=== PATIENT | female | born 1980 | race Caucasian/White ===

== ENCOUNTER → 2016-08-02 | Outpatient (CLI) | payer OTHER ==
[~2016-08-02] MED LIST: CYM30 PO; ETONMIS VAGRING; IBUP600T44 PO; OXYC-57 PO; TRAZ100T29 PO
== END | disposition home or self-care (01) ==
LOC: C.PAPS 09:57
PROVIDERS: ATTEND Obstetrics & Gynecology
DX: Z12.4 Encounter for screening for malignant neoplasm of cervix (principal)

== ENCOUNTER → 2016-08-14 | Outpatient (CLI) | payer OTHER ==
[2016-08-14 15:37] LABS: PROLACTIN 6.42 ng/mL
== END | disposition home or self-care (01) ==
LOC: C.LABBC 11:18
PROVIDERS: ATTEND Obstetrics & Gynecology
DX: N92.6 Irregular menstruation, unspecified (principal)

== ENCOUNTER → 2016-10-11 | Outpatient (CLI) | payer OTHER ==
[2016-10-11 13:41] LABS: CALCULATED INSULIN SENSITIVITY 0.314; GLUCOSE LOG 1.9685; INSULIN FASTING 16.4 mU/L (3-25); INSULIN LOG 1.2148
== END | disposition home or self-care (01) ==
LOC: C.LAB1850 11:25
PROVIDERS: ATTEND Obstetrics & Gynecology
DX: E66.9 Obesity, unspecified (principal)

== ENCOUNTER → 2017-01-16 | Outpatient (CLI) | payer OTHER ==
--- NOTE | 2017-01-16 11:07 | DIAGNOSTIC IMAGING REPORT ---
HYSTEROSALPINGOGRAM HISTORY: Infertility. FLUOROSCOPY TIME: 0.7 minutes. 5 images submitted. TECHNIQUE: The cervix was cannulated by the computer education professor-fulfillment associate and water soluble contrast was instilled into the uterus under fluoroscopic guidance. Multiple spot images were obtained. FINDINGS: The uterine cavity is normal in size, shape, and position. The fallopian tubes are patent and there is free peritoneal spill bilaterally. A few small filling defects within the uterine cavity are consistent with gas bubbles. IMPRESSION: Normal hysterosalpingogram. Electronically signed by: Justen Gómez M.D. 01/16/2017 11:06 AM Dictated Date/Time: 01/16/2017 11:06 AM
--- NOTE | 2017-01-16 11:10 | Progress Note ---
Progress Note Date of Service Jan 16, 2017. Progress Note I met Bianca in the radiology suite where consent for procedure was confirmed. She was then positioned in lithotomy, Graves speculum was placed in the vagina , and the cervix was cleansed with betadine. The anterior lip was grasped with a single tooth tenaculum and the acorn catheter was placed in the external os, then the speculum was removed. Under fluoroscopy, optiray dye was pushed through the uterus and bilateral fallopian tubes. When the imaging had been completed per Dr. Gómez the catheter and grasper were removed without difficulty. The patient was in stable condition in the radiology suite when I departed.
== END | disposition home or self-care (01) ==
LOC: C.RAD 10:12
PROVIDERS: ATTEND Obstetrics & Gynecology
DX: Z31.41 Encounter for fertility testing (principal)

== ENCOUNTER → 2017-03-04 | Outpatient (CLI) | payer OTHER | END | disposition home or self-care (01) | LOC: C.LABBC 14:44 | PROVIDERS: ATTEND Obstetrics & Gynecology | DX: Z32.00 Encounter for pregnancy test, result unknown (principal) ==

== ENCOUNTER → 2017-03-06 | Outpatient (CLI) | payer OTHER | END | disposition home or self-care (01) | LOC: C.LABBC 15:17 | PROVIDERS: ATTEND Obstetrics & Gynecology | DX: Z32.00 Encounter for pregnancy test, result unknown (principal) ==

== ENCOUNTER → 2017-03-10 | Outpatient (CLI) | payer OTHER | END | disposition home or self-care (01) | LOC: C.LAB1850 16:26 | PROVIDERS: ATTEND Obstetrics & Gynecology | DX: O20.0 Threatened abortion (principal); Z3A.00 Weeks of gestation of pregnancy not specified ==

== ENCOUNTER → 2017-03-19 | Outpatient (CLI) | payer OTHER | END | disposition home or self-care (01) | LOC: C.LABBC 15:19 | PROVIDERS: ATTEND Obstetrics & Gynecology | DX: O02.1 Missed abortion (principal) ==

== ENCOUNTER → 2017-09-26 | Outpatient (CLI) | payer OTHER ==
[2017-09-26 17:19] LABS: BASO % 0.3 %; BASO ABS # 0.03 K/uL (0-0.2); EOS % 1.9 %; EOS ABS # 0.21 K/uL (0-0.5); HEMATOCRIT 37.6 % (37-47); HEMOGLOBIN 12.4 g/dL (12.0-16.0); IG# 0.02 K/uL (0.00-0.02); LYMPH % 31.1 %; LYMPH ABS # 3.36 K/uL (1.2-3.4); MEAN CELL VOLUME 86.8 fL (80-100); MEAN CORPUSCULAR HEMOGLOBIN 28.6 pg (25-34); MONO % 6.3 %; MONO ABS # 0.68 K/uL (0.11-0.59); NEUT % 60.2 %; NEUT ABS # 6.52 K/uL (1.4-6.5); PLATELET COUNT 293 K/uL (130-400); RED CELL DISTRIBUTION WIDTH CV 14.4 % (11.5-14.5); RED CELL DISTRIBUTION WIDTH SD 46.1 fL (36.4-46.3); WHITE BLOOD COUNT 10.82 K/uL (4.8-10.8)
[2017-09-26 17:21] LABS: ALBUMIN 3.6 gm/dl (3.4-5.0); ALT/SGPT 17 U/L (12-78); AST/SGOT 18 U/L (15-37); BLOOD UREA NITROGEN 15 mg/dl (7-18); CALCIUM 8.9 mg/dl (8.5-10.1); CARBON DIOXIDE 26 mmol/L (21-32); CREATININE 0.77 mg/dl (0.60-1.20); GLUCOSE 87 mg/dl (70-99); SODIUM 138 mmol/L (136-145)
[2017-09-26 17:24] LABS: ALKALINE PHOSPHATASE 82 U/L (45-117); TOTAL PROTEIN 7.4 gm/dl (6.4-8.2)
[2017-09-26 17:27] LABS: PROLACTIN 9.18 ng/mL
[2017-09-26 18:06] LABS: HEP C IGG 13 YRS+OLDER_RFLX NEG (NEG)
== END | disposition home or self-care (01) ==
LOC: C.LABBC 14:24
PROVIDERS: ATTEND Obstetrics & Gynecology Reproductive Endocrinology
DX: Z31.41 Encounter for fertility testing (principal)

== ENCOUNTER → 2017-09-30 | Outpatient (CLI) | payer OTHER | END | disposition home or self-care (01) | LOC: C.LABBC 14:25 | PROVIDERS: ATTEND Obstetrics & Gynecology Reproductive Endocrinology | DX: Z31.41 Encounter for fertility testing (principal) ==

== ENCOUNTER → 2018-01-05 | Outpatient (CLI) | payer OTHER ==
[2018-01-05 09:31] LABS: FOLLICLE STIMULAT HORMONE 8.38 IU/L; LUTEINIZING HORMONE 8.54 IU/L
== END | disposition home or self-care (01) ==
LOC: C.LAB1850 08:23
PROVIDERS: ATTEND Obstetrics & Gynecology Reproductive Endocrinology
DX: E28.9 Ovarian dysfunction, unspecified (principal)

== ENCOUNTER 2018-11-18 07:40 | Inpatient (IN) ==
[2018-11-18] MEDS ORDERED: OXYTOCIN 30 UNITS/500 ML BAG IV PRN ×3 (08:16→21:19)
--- NOTE | 2018-11-18 08:20 | History & Physical Report ---
Date of Service November 18, 2018 Assessment & Plan (1) Post-dates , delivered, current hospitalization: Induction to proceed. Pitocin ordered. Patient not sure about epidural; will hold off AROM for now, to start one thing at a time for her comfort. Present on Admission?: Yes (2) resulting from in vitro fertilization in third trimester: See above Present on Admission?: Yes (3) Obesity affecting in third trimester: See above Present on Admission?: Yes History of Present Illness Primary Care Provider: Marry Turpin MD 38yo at 40+ weeks with IVF . Complicated by obesity, insulin resistance, IVF . Allergies Allergy/AdvReac Type Severity Reaction Status Date / Time Penicillins Allergy Mild Verified 02/21/12 07:27 Home Medications Home Medications Medication Instructions Recorded Confirmed Type Duloxetine Hcl (Cymbalta *) 30 mg PO QAM #0 10/03/09 History Etonogestrel/Ethinyl Estradiol 1 VAGRING MONTHLY #0 10/03/09 History (Nuvaring) Trazodone Hcl (Trazodone) 100 mg PO HS PRN #0 10/03/09 History Ibuprofen (Motrin) 600 mg PO Q6HR PRN #0 10/11/09 History OXYCODONE/ACETAMINOPHEN 5MG/325MG 1 - 2 tabs PO Q4HR PRN #0 10/11/09 History (PERCOCET 5MG/325MG) Physical Exam Genitourinary: Manual OB Exam: + cervical dilation 4 cm, + cervical effacement 80%, + station -2 and + amniotic fluid (intact) OB Exam Monitor Tracing: + external FHT monitor used, + external uterine monitor used and + category I Results & Data Vital Signs (Past 12 Hours) Vital Signs Temp Pulse Resp BP 11/18/18 07:50 104 H 136/82 11/18/18 07:46 37.0 C 20 Monitoring External Monitor Cat 1
[2018-11-18 08:37] LABS: Hematocrit (blood only) 35.5 % (37-47); Hemoglobin 11.6 g/dL (12.0-16.0); Mean Corpuscular Volume 83.9 fL (80-100); Mean Platelet Volume 13.3 fL (7.4-10.4); Platelet Count 200 K/uL (130-400); RDW Coefficient of Variation 14.7 % (11.5-14.5); RDW Standard Deviation 44.9 fL (36.4-46.3); Red Blood Count 4.23 M/uL (4.2-5.4); White Blood Count 11.67 K/uL (4.8-10.8)
[2018-11-18 08:38] LABS: Mean Corpuscular Hgb Conc 32.7 g/dL (32-36)
[2018-11-18] MEDS: LACTATED RINGER'S 1,000 ML IV PRN ×2 (09:12→14:49)
[2018-11-18] MEDS ORDERED: ePHEDrine sulfate 50 MG/ML AMP ONE (14:21)
[2018-11-18] MEDS ORDERED: BUPIVACAINE 0.25% 30 ML VIAL ONE (14:21)
[2018-11-18] MEDS ORDERED: fentaNYL citrate 100 MCG/2 ML VIAL ONE (14:22)
[2018-11-18] MEDS ORDERED: fentaNYL 2MCG/ML ROPIV 1.25MG/ML 100 ML BAG EPI ONE (14:22)
--- NOTE | 2018-11-18 14:44 | Anesthesiology Consultation ---
Date of Service November 18, 2018 Assessment & Plan Chart Review Chart Review: Acceptable Risk for Labor Epidural Consults Requested none History Height/Weight Height: 5 ft 3 in Weight: 148.778 kg Allergies Allergy/AdvReac Type Severity Reaction Status Date / Time Penicillins Allergy Intermediate Hives Verified 11/18/18 08:28 Medications Home Medications Medication Instructions Recorded Confirmed Last Taken PNV cmb#95-ferrous fumarate-FA 1 tab PO DAILY 11/18/18 11/18/18 11/17/18 11:00 [] beclomethasone dipropionate [Qvar 2 puff INHALATION BID 11/18/18 11/18/18 11/18/18 07:00 RediHaler] citalopram [Celexa] 40 mg PO DAILY 11/18/18 11/18/18 11/17/18 23:00 Active Medications Generic Name Dose Route Start Last Admin Trade Name Freq PRN Reason Stop Dose Admin Lactated Ringer's 1,000 mls @ 125 mls/hr 11/18/18 08:16 11/18/18 14:25 Lr IV 11/20/18 08:15 999 mls/hr .Q8H PRN Infusion L&D Protocol Protocol Oxytocin 30 units in 500 mls @ 15 mls/hr 11/18/18 08:17 11/18/18 13:15 Pitocin IV 11/20/18 08:16 0.9 units/hr .Q24H PRN 15 mls/hr Labor Induction/Augmentation Titration Protocol 0.9 UNITS/HR Past Medical History Medical History Asthma dx 2 years ago Depression since age 10 Dermoid cyst of left ovary removed in 2009 Infertility Insulin resistance PCOS (polycystic ovarian syndrome) 1 year ago resulting from in-vitro fertilization [place] teeth removed 2004 Past Family History Family History Grandfather (Paternal) Cancer Aunt Cancer Past Surgical History Surgical History H/O lithotripsy twice Hx of tonsillectomy age 21 Social History Smoking Status: Never smoker Hx Alcohol Use: No Hx Substance Use: No Physical Exam Vital Signs Last Vital Signs Temp 37.0 C 11/18/18 07:58 Pulse 76 11/18/18 14:39 Resp 20 11/18/18 12:07 BP 131/86 11/18/18 14:18 Pulse Ox 100 11/18/18 14:39 Testing Laboratory Results 11/18/18 08:21
[2018-11-18] MEDS ORDERED: NALOXONE HCL 1 MG in SODIUM CHLORIDE 0.9% 1000ML 1,000 ML IV PRN (14:45)
[2018-11-18] MEDS ORDERED: fentaNYL 2MCG/ML ROPIV 1.25MG/ML 100 ML BAG EPI PRN (14:45)
[2018-11-18] MEDS ORDERED: NALBUPHINE HCL INJ 10 MG/ML AMP IV PRN (14:45)
[2018-11-18] MEDS ORDERED: NALOXONE HCL 0.4 MG/1 ML VIAL/CARP IV PRN (14:45)
[2018-11-18] MEDS ORDERED: ePHEDrine sulfate 50 MG/ML AMP IV PRN (14:45)
[2018-11-18] MEDS ORDERED: DiphenhydrAMINE HCL 50 MG/ML VIAL IV PRN (14:45)
--- NOTE | 2018-11-18 20:45 | Procedure Note ---
Vaginal Delivery Summary Date of Service November 18, 2018 Vaginal Delivery Summary Vaginal Delivery Summary: Pre-delivery diagnoses: 38-year-old -0-1-0 at 40 weeks 3 days, induction of labor, advanced maternal age, insulin resistance, IVF , obesity, PCOS Post-delivery diagnoses: Same Procedure: Spontaneous vaginal delivery Surgeon: Rae Appiah DO Complications: none Findings: Viable female . Apgars: 8/9. Weight pending, please see nursery records Estimated blood loss: 300 mL Description of delivery: The patient progressed to complete with epidural anesthesia. She then began to push. She spontaneously vaginally delivered a female viable from the cephalic presentation. The head delivered in JILLIAN position. The anterior shoulder delivered, followed by the posterior shoulder, followed by the body. No nuchal cord was noted. The baby was placed on mother's abdomen and a spontaneous cry was heard. Delayed cord clamping was employed, and the cord was doubly clamped and cut after 3 minutes. Cord blood was obtained. The placenta was delivered spontaneously intact with a 3-vessel cord. The uterus and vagina were swept of clots and debris. IV pitocin was given. The uterus became firm. The cervix, vagina, and perineum were inspected and a first-degree perineal laceration was noted and repaired in standard fashion. Additionally, there were bilateral superficial periclitoral lacerations. These were hemostatic, and therefore not repaired. Excellent hemostasis was observed. The mother and baby are recovering in stable and good condition in the room. Sponge, needle, and instrument counts were correct x 2. Rae Appiah [place] [facility] [place]
[2018-11-18] MEDS ORDERED: DIPHTHERIA/TETANUS/PERTUSSIS 0.5 ML SYR/VIAL IM ONE (21:19)
[2018-11-18] MEDS ORDERED: ACETAMINOPHEN 325 MG TAB PO PRN (21:19)
[2018-11-18] MEDS ORDERED: OXYCODONE/ACETAMINOPHEN 5mg/325mg TAB PO PRN (21:19)
[2018-11-18] MEDS ORDERED: BENZOCAINE 20% AER SPR 82.5 GM CAN EXT PRN (21:19)
[2018-11-18] MEDS ORDERED: SUPERCREAM 0.870% 15 GM JAR EXT PRN (21:19)
[2018-11-18] MEDS ORDERED: HYDROCORTISONE ACETATE 25 MG SUPP PR PRN (21:19)
[2018-11-18] MEDS ORDERED: BISACODYL 10 MG SUPP PR PRN (21:19)
[2018-11-18] MEDS: IBUPROFEN 600 MG TAB PO PRN (23:33)
[2018-11-19 06:41] LABS: Hematocrit (blood only) 32.9 % (37-47); Hemoglobin 10.7 g/dL (12.0-16.0); Mean Corpuscular Hgb Conc 32.5 g/dL (32-36); Mean Corpuscular Volume 85.7 fL (80-100); Mean Platelet Volume 14.1 fL (7.4-10.4); Platelet Count 195 K/uL (130-400); RDW Coefficient of Variation 14.9 % (11.5-14.5); RDW Standard Deviation 45.9 fL (36.4-46.3); Red Blood Count 3.84 M/uL (4.2-5.4); White Blood Count 15.26 K/uL (4.8-10.8)
--- NOTE | 2018-11-19 06:43 | Obstetrical Progress Note ---
Date of Service <Jarvis JoeDale Arboleda - Last Filed: 11/19/18 06:44> November 19, 2018 Assessment & Plan <Jarvis Arboleda DO - Last Filed: 11/19/18 06:44> (1) (spontaneous vaginal delivery): -vital signs reviewed and WNL -last Hgb 11.6 -Blood type: A+, GBS-, Rubella Immune -pt doing well clinically -encourage ambulation, monitor and control pain with motrin tylenol, cont regular diet, monitor lochia -cont encourage breast feeding - anticipate d/c tomorrow Subjective <Jarvis JoeDale Arboleda - Last Filed: 11/19/18 06:44> 38 y/o PPD1 found in bed this morning in NAD. Reports no acute overnight events. Pt states that she has no pain other than appropriate soreness. Tolerating PO intake without N/V. Able to ambulate without issue. She is breast feeding without issue. No issues with voiding, no BM yet but passing gas. No other acute concerns or complaints. Review of Systems All systems reviewed & are unremarkable except as noted in HPI & below Physical Exam <Jarvis Arboleda DO - Last Filed: 11/19/18 06:44> Constitutional WD/WN, vitals as above Respiratory normal respiratory effort, lungs clear to auscultation Cardiovascular RRR, no murmur, no edema Gastrointestinal (Abdomen) mild abd tenderness Fundus not palpated, please see attending findings Skin no rashes, warm and dry Psychiatric A+Ox3, euthymic affect Lymphatic no LE swelling, no calf tenderness Results & Data <Jarvis JoeDale Arboleda - Last Filed: 11/19/18 06:44> Vital Signs (Past 12 Hours) Vital Signs Temp Pulse Pulse Resp BP BP Pulse Ox 11/19/18 03:10 36.8 C 92 H 16 124/85 97 11/18/18 21:55 36.7 C 108 H 20 149/89 H 97 11/18/18 21:33 37.2 C 95 H 16 147/76 H 11/18/18 21:18 92 H 147/77 H 11/18/18 21:03 93 H 149/83 H 11/18/18 20:48 100 H 20 148/84 H 11/18/18 20:33 88 137/71 11/18/18 20:18 93 H 137/82 11/18/18 20:15 88 137/79 11/18/18 19:18 96 H 16 180/74 H 11/18/18 19:04 98 H 100 11/18/18 19:03 91 H 16 172/72 H 11/18/18 18:59 91 H 100 11/18/18 18:54 89 99 11/18/18 18:49 82 100 11/18/18 18:48 93 H 185/82 H 11/18/18 18:44 96 H 100 Laboratory Results Laboratory Results - last 24 hr 11/18/18 11/19/18 08:21 06:12 WBC 11.67 H 15.26 H RBC 4.23 3.84 L Hgb 11.6 L 10.7 L Hct 35.5 L 32.9 L MCV 83.9 85.7 MCH 27.4 27.9 MCHC 32.7 32.5 RDW Std Deviation 44.9 45.9 RDW Coeff of Addie 14.7 H 14.9 H Plt Count 200 195 MPV 13.3 H 14.1 H Medications Administered Current Inpatient Medications Acetaminophen (Tylenol) 650 mg PO Q6H PRN PRN Reason: Pain/TALAMANTES/Fever Stop: 12/18/18 21:18 Beclomethasone Dipropionate (Qvar 40 Mcg) 2 puffs INH BID [facility] Stop: 12/18/18 21:18 Benzocaine (Dermoplast Pain Relieving [place]) 1 appln EXT PRN PRN PRN Reason: Perineal Discomfort Stop: 12/18/18 21:18 Bisacodyl (Dulcolax) 5 mg PO 1999 [facility] Stop: 11/19/18 20:01 Bisacodyl (Dulcolax) 10 mg NM DAILY PRN PRN Reason: No BM on 2nd post- day Stop: 12/18/18 21:18 Citalopram Hydrobromide (Celexa) 40 mg PO DAILY [facility] Stop: 12/19/18 08:59 Cocaine HCl (Supercream 0.870%) 1 gm EXT BID PRN PRN Reason: Hemorrhoidal Inflammation Stop: 12/02/18 21:18 Docusate Sodium (Colace) 100 mg PO DAILY@ [facility] Stop: 12/18/18 21:18 Hydrocortisone (Anusol Hc) 25 mg NM BID PRN PRN Reason: Hemorrhoidal Inflammation Stop: 12/18/18 21:18 Oxytocin (Pitocin) 30 units in 500 mls @ 333.333 mls/hr IV .Q1H30M PRN; Protocol PRN Reason: Bleeding Control Stop: 12/18/18 21:18 Ibuprofen (Motrin) 600 mg PO Q4H PRN PRN Reason: Pain/TALAMANTES/Cramping/Fever Stop: 12/18/18 21:18 Last Admin: 11/18/18 23:33 Dose: 600 mg Documented by: Oxycodone/Acetaminophen (Percocet 5mg/325mg) 1 tab PO Q4H PRN PRN Reason: Pain not relieved by... Stop: 12/02/18 21:18 Prenat Multivit/[place]/Iron/Folic Ac ( Vitamin) 1 tab PO DAILY@08 [facility] Stop: 12/19/18 07:59 <Rae Appiah DO - Last Filed: 11/19/18 07:38> Co-Signing Physician Notes Resident Physician Supervision Note: I interviewed and examined the patient. Discussed with Dr. Arboleda and agree with findings and plan as documented in the note. Any exceptions or clarifications are listed here: PPD#1 doing well. Routine care. Documented By: Rae Appiah DO Resident Activity Tracking <Jarvis Arboleda DO - Last Filed: 11/19/18 06:44> Resident Involvement: Resident Care Provided Care Provided: OB Delivery
[2018-11-19] MEDS: CITALOPRAM 40 MG TAB PO SCH (08:04)
[2018-11-19] MEDS: BECLOMETHASONE DIP HFA 40 MCG 8.7G INH INH SCH ×2 (08:04→21:05)
[2018-11-19] MEDS: PRENATAL VITAMIN 1 TAB PO SCH (08:04)
[2018-11-19] MEDS: DOCUSATE SODIUM 100 MG CAP PO SCH ×2 (08:04→21:04)
--- NOTE | 2018-11-19 08:49 | Anesthesia Procedure Note ---
Date of Service November 19, 2018 Anesthesia Post Epidural Note Vital Signs Vital Signs: Temp Pulse Resp BP Pulse Ox 36.6 C 87 20 139/81 98 11/19/18 08:00 11/19/18 08:00 11/19/18 08:00 11/19/18 08:00 11/19/18 08:00 Pain Intensity Bilateral Abdomen: Pain Intensity: 1 Notes Mental Status: alert / awake / arousable and participated in evaluation Nausea / Vomiting: adequately controlled Pain: adequately controlled Airway Patency, RR, SpO2: stable & adequate BP & HR: stable & adequate Hydration State: stable & adequate Neuraxial Anesthesia: was administered and sensory block is resolving Anesthetic Complications: no major complications apparent and Pt Satisfied with anesthetic care Epidural: Removed without complications and With tip intact
[2018-11-19] MEDS: IBUPROFEN 600 MG TAB PO PRN ×2 (10:58→23:30)
[2018-11-19] MEDS ORDERED: BISACODYL 5 MG TABEC PO SCH (20:00)
[2018-11-20 06:31] LABS: Hemoglobin 9.7 g/dL (12.0-16.0)
--- NOTE | 2018-11-20 06:59 | Obstetrical Progress Note ---
Date of Service <Jarvis Johanne Arboleda - Last Filed: 11/20/18 06:59> November 20, 2018 Assessment & Plan <Jarvis JoeDale Arboleda - Last Filed: 11/20/18 06:59> (1) (spontaneous vaginal delivery): -vital signs reviewed and WNL -last Hgb 10.7 -Blood type: A+, GBS-, Rubella Immune -pt doing well clinically -encourage ambulation, monitor and control pain with motrin tylenol, cont regular diet, monitor lochia -cont encourage breast feeding -plan for d/c today Subjective <Jarvis JoeDale Arboleda - Last Filed: 11/20/18 06:59> 38 y/o PPD2 found in bed this morning in NAD. Reports no acute overnight events. Pt states that she has no pain other than appropriate soreness. Tolerating PO intake without N/V. Able to ambulate without issue. She is breast feeding without issue. No issues with voiding, no BM yet but passing gas. No other acute concerns or complaints. Review of Systems All systems reviewed & are unremarkable except as noted in HPI & below Physical Exam <Jarvis Arboleda - Last Filed: 11/20/18 06:59> Constitutional WD/WN, vitals as above Respiratory normal respiratory effort, lungs clear to auscultation Cardiovascular RRR, no murmur, no edema Gastrointestinal (Abdomen) mild abd tenderness fundus not palpated, please see attending findings Skin no rashes, warm and dry Psychiatric A+Ox3, euthymic affect Lymphatic no LE swelling, no calf tenderness Results & Data <Jarvis Johanne Arboleda, - Last Filed: 11/20/18 06:59> Vital Signs (Past 12 Hours) Vital Signs Temp Pulse Resp BP 11/20/18 04:30 80 140/92 11/20/18 00:10 36.6 C 83 18 147/96 H 11/19/18 20:00 161/97 H Laboratory Results Laboratory Results - last 24 hr 11/20/18 06:12 Hgb 9.7 L Hct 30.0 L Medications Administered Current Inpatient Medications Acetaminophen (Tylenol) 650 mg PO Q6H PRN PRN Reason: Pain/TALAMANTES/Fever Stop: 12/18/18 21:18 Beclomethasone Dipropionate (Qvar 40 Mcg) 2 puffs INH BID [facility] Stop: 12/18/18 21:18 Last Admin: 11/19/18 21:05 Dose: 2 puffs Documented by: Benzocaine (Dermoplast Pain Relieving [place]) 1 appln EXT PRN PRN PRN Reason: Perineal Discomfort Stop: 12/18/18 21:18 Bisacodyl (Dulcolax) 10 mg IN DAILY PRN PRN Reason: No BM on 2nd post- day Stop: 12/18/18 21:18 Citalopram Hydrobromide (Celexa) 40 mg PO DAILY [facility] Stop: 12/19/18 08:59 Last Admin: 11/19/18 08:04 Dose: 40 mg Documented by: Cocaine HCl (Supercream 0.870%) 1 gm EXT BID PRN PRN Reason: Hemorrhoidal Inflammation Stop: 12/02/18 21:18 Last Admin: 11/19/18 21:04 Dose: 1 gm Documented by: Docusate Sodium (Colace) 100 mg PO DAILY@08,21 [facility] Stop: 12/18/18 21:18 Last Admin: 11/19/18 21:04 Dose: 100 mg Documented by: Hydrocortisone (Anusol Hc) 25 mg IN BID PRN PRN Reason: Hemorrhoidal Inflammation Stop: 12/18/18 21:18 Oxytocin (Pitocin) 30 units in 500 mls @ 333.333 mls/hr IV .Q1H30M PRN; Protocol PRN Reason: Bleeding Control Stop: 12/18/18 21:18 Ibuprofen (Motrin) 600 mg PO Q4H PRN PRN Reason: Pain/TALAMANTES/Cramping/Fever Stop: 12/18/18 21:18 Last Admin: 11/19/18 23:30 Dose: 600 mg Documented by: Oxycodone/Acetaminophen (Percocet 5mg/325mg) 1 tab PO Q4H PRN PRN Reason: Pain not relieved by... Stop: 12/02/18 21:18 Prenat Multivit/Health Information Administrator/Iron/Folic Ac ( Vitamin) 1 tab PO DAILY@08 [facility] Stop: 12/19/18 07:59 Last Admin: 11/19/18 08:04 Dose: 1 tab Documented by: <Colette Aranda MD, FACOG - Last Filed: 11/20/18 07:56> Co-Signing Physician Notes Resident Physician Supervision Note: I interviewed and examined the patient. Discussed with Dr. Nasima Arboleda and agree with findings and plan as documented in the note. Any exceptions or clarifications are listed here: [None] Documented By: Colette Aranda MD, FACOG Resident Activity Tracking <Jarvis Arboleda, - Last Filed: 11/20/18 06:59> Resident Involvement: Resident Care Provided Care Provided: OB Delivery
[2018-11-20] MEDS: BECLOMETHASONE DIP HFA 40 MCG 8.7G INH INH SCH (08:24)
[2018-11-20] MEDS: CITALOPRAM 40 MG TAB PO SCH (08:25)
[2018-11-20] MEDS: PRENATAL VITAMIN 1 TAB PO SCH (08:26)
[2018-11-20] MEDS: DOCUSATE SODIUM 100 MG CAP PO SCH (08:26)
[2018-11-20] MEDS: IBUPROFEN 600 MG TAB PO PRN (12:35)
== END 2018-11-20 15:55 | disposition home or self-care (01) | DRG 806 ==
LOC: 4S1 07:40 → 4S2 21:58